=== PATIENT | female | born 1960 | race Caucasian/White ===

== ENCOUNTER 2018-06-21 03:55 | Inpatient (IN) | payer BC ==
[2018-06-21] MEDS ORDERED: Sodium Chloride 0.9% 10 ML Syringe FLUSH PRN (04:13)
[2018-06-21] MEDS ORDERED: Diltiazem 25 MG/5 ML SDV IVPUSH ONE (04:17)
[2018-06-21] MEDS ORDERED: Sodium Chloride 0.9% 1,000 ML IV ONE ×2 (04:43→18:52)
[2018-06-21 05:29] LABS: CHLORIDE,CL 103 mmol/L (98-107); SODIUM,NA 137 mmol/L (136-145)
[2018-06-21 05:30] LABS: ANION GAP 18.8 mmol/L (10-20)
[2018-06-21] MEDS ORDERED: Sodium Chloride 0.9% with KCl 1,000 ML IV SCH (05:45)
[2018-06-21] MEDS ORDERED: cefTRIAXone 2 GM Vial IVPUSH ONE (06:10)
--- NOTE | 2018-06-21 06:25 | EDM.PDOC ---
ED HPI GENERAL MEDICAL PROBLEM - General Chief Complaint: Fever Stated Complaint: fever Time Seen by Provider: 06/21/18 04:10 Source of Information: Reports: Patient, Family History Limitations: Reports: No Limitations - History of Present Illness INITIAL COMMENTS - FREE TEXT/NARRATIVE: PtYas presents to ER with complaints of dysuria, fever, and chills that she has been experiencing since last Thursday-. She states that she has also felt weak/lightheaded. Denies any chest pain or shortness of breath. No cough. No nausea, vomiting, or diarrhea. She states that her urine looks somewhat concentrated. Denies any palpitations. No sensation or racing/irregular heart rate/rhythm. Onset Date: 06/16/18 Location: Reports: Generalized, Other (dysuria) Lower Back Pain Score (Numeric/FACES): 3 - Related Data Allergies Allergy/AdvReac Type Severity Reaction Status Date / Time No Known Allergies Allergy Verified 06/21/18 04:07 Home Meds: Home Meds Allopurinol 1 tab PO DAILY 06/30/15 [History] Colchicine 0.6 mg PO ASDIRECTED #4 capsule 06/30/15 [Rx] Enalapril Maleate 1 tab PO DAILY 06/30/15 [History] LORazepam 1 tab PO ASDIRECTED PRN 06/30/15 [History] Levothyroxine Sodium 1 tab PO DAILY 06/30/15 [History] Meloxicam 1 tab PO DAILY 06/30/15 [History] Past Medical History Cardiovascular History: Reports: Hypertension Other [employer] History: Tubal ligation Other Musculoskeletal History: Finger repair Psychiatric History: Reports: Anxiety, Depression Endocrine/Metabolic History: Reports: Other (See Below) Other Endocrine/Metabolic History: thyroid disease Social & Family History - Tobacco Use Smoking Status *Q: Never Smoker ED ROS GENERAL - Review of Systems Review Of Systems: See Below Constitutional: Reports: Fever, Chills, Fatigue HEENT: Reports: No Symptoms Respiratory: Reports: No Symptoms Cardiovascular: Reports: No Symptoms Endocrine: Reports: No Symptoms GI/Abdominal: Reports: No Symptoms : Reports: Dysuria Musculoskeletal: Reports: No Symptoms Skin: Reports: No Symptoms Neurological: Reports: Weakness (generalized) Psychiatric: Reports: No Symptoms Hematologic/Lymphatic: Reports: No Symptoms Immunologic: Reports: No Symptoms ED EXAM, GENERAL - Physical Exam Exam: See Below Exam Limited By: No Limitations General Appearance: Alert, WD/WN, No Apparent Distress Eye Exam: Bilateral Eye: EOMI, Normal Fundi, Normal Inspection, PERRL Nose: Normal Inspection, Normal Mucosa, No Blood Throat/Mouth: Normal Inspection, Normal Lips, Normal Teeth, Normal Gums, Normal Oropharynx, Normal Voice, No Airway Compromise Head: Atraumatic, Normocephalic Neck: Normal Inspection, Supple, Non-Tender, Full Range of Motion Respiratory/Chest: No Respiratory Distress, Lungs Clear, Normal Breath Sounds, No Accessory Muscle Use, Chest Non-Tender Cardiovascular: Normal Peripheral Pulses, Regular Rate, Rhythm, No Edema, No Gallop, No JVD, No Murmur, No Rub Peripheral Pulses: 4+: Radial (L), Radial (R) GI/Abdominal: Normal Bowel Sounds, Soft, Non-Tender, No Organomegaly, No Distention, No Abnormal Bruit, No Mass (Female) Exam: Deferred Rectal (Female) Exam: Deferred Back Exam: Normal Inspection, Full Range of Motion, NT Extremities: Normal Inspection, Normal Range of Motion, Non-Tender, Normal Capillary Refill, No Pedal Edema Neurological: Alert, Oriented, CN II-XII Intact, Normal Cognition, No Motor/ Sensory Deficits Psychiatric: Normal Affect, Normal Mood Skin Exam: Warm, Dry, Intact, Normal Color, No Rash Lymphatic: No Adenopathy EKG INTERPRETATION Rhythm: Other (a flutter at 150) Comparison: NA - No Prior EKG Course - Vital Signs Last Recorded V/S: Last Vital Signs Temp 37.9 C 06/21/18 05:54 Pulse 115 H 06/21/18 05:54 Resp 20 06/21/18 05:54 BP 134/78 06/21/18 05:54 Pulse Ox 95 06/21/18 04:03 - Orders/Labs/Meds Orders: Active Orders 24 hr Category Date Time Status Patient Status [ADT] Routine ADT 06/21/18 06:13 Active EKG Documentation Completion [RC] STAT Care 06/21/18 04:14 Active EKG Documentation Completion [RC] STAT Care 06/21/18 06:11 Active Chest 1V Frontal [CR] Stat Exams 06/21/18 04:15 Taken CULTURE BLOOD [BC] Stat Lab 06/21/18 04:39 Received CULTURE BLOOD [BC] Stat Lab 06/21/18 04:44 Received Sodium Chloride 0.9% [Saline Flush] Med 06/21/18 04:13 Active 10 ml FLUSH ASDIRECTED PRN Sodium Chloride 0.9% with KCl [Normal Saline with 40 Med 06/21/18 05:45 Active mEq KCl] 1,000 ml IV ASDIRECTED Blood Culture x2 Reflex Set [OM.PC] Stat Oth 06/21/18 04:15 Ordered Peripheral IV Insertion Adult [OM.PC] Routine Oth 06/21/18 04:15 Ordered Medication Orders Potassium Chloride/Sodium Chloride (Normal Saline With 40 Meq Kcl) 1,000 mls @ 200 mls/hr IV ASDIRECTED ALDA Last Admin: 06/21/18 05:55 Dose: 200 mls/hr Sodium Chloride (Saline Flush) 10 ml FLUSH ASDIRECTED PRN PRN Reason: Keep Vein Open Labs: Laboratory Tests 06/21/18 06/21/18 06/21/18 Range/Units 04:39 04:39 04:39 WBC 6.7 (4.0-10.0) x10^3/uL RBC 3.77 L (4.00-5.50) x10^6/uL Hgb 12.5 (12.0-16.0) g/dL Hct 35.6 (33.0-47.0) % MCV 94.4 H (78.0-93.0) fL MCH 33.2 H (26.0-32.0) pg MCHC 35.1 (32.0-36.0) g/dL RDW Coeff of Kaleigh 13.8 (10.0-15.0) % Plt Count 64 L (130-400) x10^3/uL Neut % (Auto) 82.2 H (50.0-80.0) % Lymph % (Auto) 9.6 L (25.0-50.0) % Todd % (Auto) 7.8 (2.0-11.0) % Eos % (Auto) 0.2 (0.0-4.0) % Baso % (Auto) 0.2 (0.2-1.2) % PT 11.7 H (9.6-11.4) SEC INR 1.1 L (2.0-3.5) Sodium 137 (136-145) mmol/L Potassium 2.8 L* (3.5-5.1) mmol/L Chloride 103 (98-107) mmol/L Carbon Dioxide 18 L (21-32) mmol/L Anion Gap 18.8 (10-20) mmol/L BUN 5 L (7-18) mg/dL Creatinine 1.1 H (0.55-1.02) mg/dL Est Cr Clr Drug Dosing TNP Estimated GFR (MDRD) 51 Glucose 158 H (74-106) mg/dL Lactic Acid (0.4-2.0) mmol/L Calcium 8.5 (8.5-10.1) mg/dL Corrected Calcium 9.06 (8.5-10.1) mg/dL Phosphorus 2.5 L (2.6-4.7) mg/dL Magnesium 1.4 L (1.8-2.4) mg/dL Total Bilirubin 2.1 H (0.2-1.0) mg/dL AST 39 H (15-37) U/L ALT 54 (14-59) U/L Alkaline Phosphatase 74 (46-116) U/L Troponin I < 0.017 (<=0.056) ng/mL C-Reactive Protein 8.2 H (<=0.9) mg/dL Total Protein 7.4 (6.4-8.2) g/dL Albumin 3.3 L (3.4-5.0) g/dL Globulin 4.1 Albumin/Globulin Ratio 0.80 TSH, Ultra Sensitive 6.034 H (0.358-3.74) uIU/mL Urine Color (YELLOW) Urine Appearance (CLEAR) Urine pH (5.0-8.0) Ur Specific Rogers Urine Protein (NEGATIVE) mg/dL Urine Glucose (UA) (NEGATIVE) mg/dL Urine Ketones (NEGATIVE) mg/dL Urine Occult Blood (NEGATIVE) Urine Nitrite (NEGATIVE) Urine Bilirubin (NEGATIVE) Urine Urobilinogen (0.2) EU/dL Ur Leukocyte Esterase (NEGATIVE) Urine RBC (NOT SEEN) /HPF Urine WBC (NOT SEEN) /HPF Urine WBC Clumps Ur Squamous Epith Cells (NEGATIVE) /HPF Ur Renal Epithelial Cell (NEGATIVE) /HPF Urine Bacteria (NEGATIVE) /HPF Urine Mucus (NEGATIVE) /LPF 06/21/18 06/21/18 Range/Units 04:39 05:50 WBC (4.0-10.0) x10^3/uL RBC (4.00-5.50) x10^6/uL Hgb (12.0-16.0) g/dL Hct (33.0-47.0) % MCV (78.0-93.0) fL MCH (26.0-32.0) pg MCHC (32.0-36.0) g/dL RDW Coeff of Kaleigh (10.0-15.0) % Plt Count (130-400) x10^3/uL Neut % (Auto) (50.0-80.0) % Lymph % (Auto) (25.0-50.0) % Todd % (Auto) (2.0-11.0) % Eos % (Auto) (0.0-4.0) % Baso % (Auto) (0.2-1.2) % PT (9.6-11.4) SEC INR (2.0-3.5) Sodium (136-145) mmol/L Potassium (3.5-5.1) mmol/L Chloride (98-107) mmol/L Carbon Dioxide (21-32) mmol/L Anion Gap (10-20) mmol/L BUN (7-18) mg/dL Creatinine (0.55-1.02) mg/dL Est Cr Clr Drug Dosing Estimated GFR (MDRD) Glucose (74-106) mg/dL Lactic Acid 2.5 H* (0.4-2.0) mmol/L Calcium (8.5-10.1) mg/dL Corrected Calcium (8.5-10.1) mg/dL Phosphorus (2.6-4.7) mg/dL Magnesium (1.8-2.4) mg/dL Total Bilirubin (0.2-1.0) mg/dL AST (15-37) U/L ALT (14-59) U/L Alkaline Phosphatase (46-116) U/L Troponin I (<=0.056) ng/mL C-Reactive Protein (<=0.9) mg/dL Total Protein (6.4-8.2) g/dL Albumin (3.4-5.0) g/dL Globulin Albumin/Globulin Ratio TSH, Ultra Sensitive (0.358-3.74) uIU/mL Urine Color Dark yellow H (YELLOW) Urine Appearance Turbid H (CLEAR) Urine pH 6.0 (5.0-8.0) Ur Specific Rogers <=1.005 Urine Protein 100 H (NEGATIVE) mg/dL Urine Glucose (UA) Negative (NEGATIVE) mg/dL Urine Ketones Negative (NEGATIVE) mg/dL Urine Occult Blood Moderate H (NEGATIVE) Urine Nitrite Negative (NEGATIVE) Urine Bilirubin Negative (NEGATIVE) Urine Urobilinogen 0.2 (0.2) EU/dL Ur Leukocyte Esterase Large H (NEGATIVE) Urine RBC 5-10 H (NOT SEEN) /HPF Urine WBC Semi-packed (NOT SEEN) /HPF Urine WBC Clumps Few Ur Squamous Epith Cells Moderate H (NEGATIVE) /HPF Ur Renal Epithelial Cell Few H (NEGATIVE) /HPF Urine Bacteria Many H (NEGATIVE) /HPF Urine Mucus Moderate H (NEGATIVE) /LPF Meds: Medications Generic Name Dose Route Start Last Admin Trade Name Freq PRN Reason Stop Dose Admin Potassium Chloride/Sodium Chloride 1,000 mls @ 200 mls/hr 06/21/18 05:45 05:55 Normal Saline With 40 Meq Kcl IV 200 mls/hr ASDIRECTED ALDA Administration Sodium Chloride 10 ml 06/21/18 04:13 Saline Flush FLUSH ASDIRECTED PRN Keep Vein Open Discontinued Medications Generic Name Dose Route Start Last Admin Trade Name Freq PRN Reason Stop Dose Admin Ceftriaxone Sodium 2 gm 06/21/18 06:10 06/21/18 06:19 Rocephin IVPUSH 06/21/18 06:11 2 gm STAT ONE Administration Diltiazem HCl 20 mg 06/21/18 04:17 06/21/18 04:25 Diltiazem IVPUSH 06/21/18 04:18 20 mg ONETIME ONE Administration Sodium Chloride 1,000 mls @ 1,000 mls/hr 06/21/18 04:43 06/21/18 04:25 Normal Saline IV 06/21/18 05:42 1,000 mls/hr .BOLUS ONE Administration - Radiology Interpretation Free Text/Narrative:: CXR negative for acute pathology - Re-Assessments/Exams Free Text/Narrative Re-Assessment/Exam: Pt. was given cardizem 20mg IV. After approx. 1-15min, pt. converted to sinus tach in the 110-120 range with [address] acute ST or T wave changes. Pt. was given 1 liter or NS and then started on NS with 40meq of KCl at 200ml/hr. She was given 2 gm rocephin IV for her UTI. Free Text/Narrative Re-Assessment/Exam: 06/21/18 06:29 Admit-Obs Code level 2 Continue NS with 40KCl at 200ml/hr Rocephin 1gm daily for subsequent doses. Will trend labs, including lactic acid, chemisty, and CBC. Departure - Departure Time of Disposition: 06:35 Disposition: Refer to Observation Clinical Impression: UTI (urinary tract infection), Atrial flutter - Discharge Information - My Orders Last 24 Hours: My Active Orders 06/21/18 04:13 Sodium Chloride 0.9% [Saline Flush] 10 ml FLUSH ASDIRECTED PRN 06/21/18 04:14 EKG Documentation Completion [RC] STAT 06/21/18 04:15 Chest 1V Frontal [CR] Stat Blood Culture x2 Reflex Set [OM.PC] Stat Peripheral IV Insertion Adult [OM.PC] Routine 06/21/18 04:39 CULTURE BLOOD [BC] Stat 06/21/18 04:44 CULTURE BLOOD [BC] Stat 06/21/18 05:45 Sodium Chloride 0.9% with KCl [Normal Saline with 40 mEq KCl] 1,000 ml IV ASDIRECTED 06/21/18 06:11 EKG Documentation Completion [RC] STAT 06/21/18 06:13 Patient Status [ADT] Routine - Assessment/Plan Last 24 Hours: My Active Orders 06/21/18 04:13 Sodium Chloride 0.9% [Saline Flush] 10 ml FLUSH ASDIRECTED PRN 06/21/18 04:14 EKG Documentation Completion [RC] STAT 06/21/18 04:15 Chest 1V Frontal [CR] Stat Blood Culture x2 Reflex Set [OM.PC] Stat Peripheral IV Insertion Adult [OM.PC] Routine 06/21/18 04:39 CULTURE BLOOD [BC] Stat 06/21/18 04:44 CULTURE BLOOD [BC] Stat 06/21/18 05:45 Sodium Chloride 0.9% with KCl [Normal Saline with 40 mEq KCl] 1,000 ml IV ASDIRECTED 06/21/18 06:11 EKG Documentation Completion [RC] STAT 06/21/18 06:13 Patient Status [ADT] Routine
[2018-06-21] MEDS ORDERED: Meloxicam 7.5 MG Tab PO SCH (08:00)
[2018-06-21] MEDS: Allopurinol 300 MG Tab PO SCH (08:12)
[2018-06-21] MEDS: Enalapril 5 MG Tab PO SCH (08:12)
[2018-06-21] MEDS: Levothyroxine 75 MCG Tab PO SCH (08:12)
[2018-06-21] MEDS ORDERED: Ibuprofen 200 MG Tab PO PRN (10:47)
[2018-06-21] MEDS ORDERED: Acetaminophen/HYDROcodone 325-10 MG Tab PO PRN (10:52)
[2018-06-21] MEDS: Lactated Ringers 1,000 ML IV SCH ×2 (11:11→21:40)
[2018-06-21] MEDS ORDERED: Enoxaparin 40 MG/0.4 ML Syringe SUBCUT SCH (16:45)
[2018-06-21] MEDS ORDERED: Magnesium Sulfate/Water 4 GM in Premix Bag 1 BAG IV ONE (17:52)
--- NOTE | 2018-06-21 19:30 | PCM.HP ---
H&P History of Present Illness - General Date of Service: 06/21/18 Admit Problem/Dx: Admission Diagnosis/Problem Admission Diagnosis/Problem Septicemia 2/2 to Acute cystitis with hematuria, gram negative rods Fevers Diarrhea Dehydration Hypomagnesemia Source of Information: Patient, Old Records, RN, RN Notes Reviewed History Limitations: Reports: No Limitations - History of Present Illness Initial Comments - Free Text/Narative: Patient presented to the ED at [facility] early this morning complaining of fevers (Tmax 103.5), chills, and UTI like symptoms. Patient states her symptoms began last week Thursday. She has not experienced any chest pain or SOB. She has some mild generalized abdominal discomfort. She states she has been having loose watery stools since last Thursday as well. She feels fatigued and weak. No focal neurological problems. Patient was admitted to the observation unit this morning with a diagnosis of UTI. Her blood cultures came back positive this afternoon for gram negative rods , therefore, her status was changes to acute as she will require a longer period of IV antibiotics. 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 She is not aware of any possible exposures, but it is certainly possible. Her bowels are usually normal formed stools daily. She has not had any recent diet changes. No recent abx use. She feels nauseated at times , but seems to subside on its own. She has chronic back pain. She is currently taking high doses of NSAIDS for her back pain. Onset of Symptoms: Reports: Gradual Symptom Onset Date: 06/15/18 Location: Reports: Abdomen, Generalized Quality: Reports: Dull Severity: Mild Lower Back Pain Score (Numeric/FACES): 3 - Related Data Allergies/Adverse Reactions: Allergies Allergy/AdvReac Type Severity Reaction Status Date / Time No Known Allergies Allergy Verified 06/21/18 04:07 Home Medications: Home Meds Allopurinol 300 mg PO DAILY 06/30/15 [History] LORazepam 0.5 mg PO BEDTIME 06/30/15 [History] Levothyroxine Sodium 75 mcg PO DAILY 06/30/15 [History] Meloxicam 15 mg PO DAILY 06/30/15 [History] Colchicine 0.6 mg PO Q6H PRN 06/21/18 [History] Enalapril [Vasotec] 10 mg PO DAILY 06/21/18 [History] Past Medical History Cardiovascular History: Reports: Hypertension Other OB/BYN History: Tubal ligation Musculoskeletal History: Reports: Gout Other Musculoskeletal History: Finger repair Psychiatric History: Reports: Anxiety, Depression, Other (See Below) Other Psychiatric History: insomnia Endocrine/Metabolic History: Reports: Hypothyroidism, Other (See Below) Other Endocrine/Metabolic History: thyroid disease Social & Family History - Family History Family Medical History: Noncontributory - Tobacco Use Smoking Status *Q: Never Smoker Second Hand Smoke Exposure: No - Caffeine Use Caffeine Use: Reports: Coffee - Recreational Drug Use Recreational Drug Use: No H&P Review of Systems - Review of Systems: Review Of Systems: See Below General: Reports: Fever, Chills, Weakness, Fatigue. Denies: Diaphoresis, Weight Loss Pulmonary: Denies: Shortness of Breath, Cough Cardiovascular: Denies: Chest Pain, Palpitations Gastrointestinal: Reports: Abdominal Pain, Diarrhea, Nausea. Denies: Black Stool, Bloody Stool, Vomiting Genitourinary: Reports: Dysuria, Frequency, Urgency, Hematuria. Denies: Discharge Musculoskeletal: Reports: Back Pain (chronic) Skin: Reports: No Symptoms Neurological: Reports: No Symptoms Exam - Exam Exam: See Below - Vital Signs Vital Signs: Last Vital Signs Temp 37.2 C 06/21/18 17:25 Pulse 94 06/21/18 17:25 Resp 16 06/21/18 17:25 BP 143/80 H 06/21/18 17:25 Pulse Ox 98 06/21/18 17:25 Weight: 74.616 kg - Exam General: Alert, Oriented, Cooperative Lungs: Clear to Auscultation, Normal Respiratory Effort Cardiovascular: Regular Rate, Regular Rhythm, Normal S1, Normal S2 GI/Abdominal Exam: Normal Bowel Sounds, Soft, Tender (mildly tender throughout) (Female) Exam: Deferred Back Exam: Normal Inspection Skin: Warm, Dry, Intact Neuro Extensive - Mental Status: Alert, Oriented x3 - Patient Data Lab Results Last 24 hrs: Laboratory Results - last 24 hr 06/21/18 06/21/18 06/21/18 Range/Units 04:39 04:39 04:39 WBC 6.7 (4.0-10.0) x10^3/uL RBC 3.77 L (4.00-5.50) x10^6/uL Hgb 12.5 (12.0-16.0) g/dL Hct 35.6 (33.0-47.0) % MCV 94.4 H (78.0-93.0) fL MCH 33.2 H (26.0-32.0) pg MCHC 35.1 (32.0-36.0) g/dL RDW Coeff of [place] 13.8 (10.0-15.0) % Plt Count 64 L (130-400) x10^3/uL Neut % (Auto) 82.2 H (50.0-80.0) % Lymph % (Auto) 9.6 L (25.0-50.0) % [place] % (Auto) 7.8 (2.0-11.0) % Eos % (Auto) 0.2 (0.0-4.0) % Baso % (Auto) 0.2 (0.2-1.2) % PT 11.7 H (9.6-11.4) SEC INR 1.1 L (2.0-3.5) Sodium 137 (136-145) mmol/L Potassium 2.8 L* (3.5-5.1) mmol/L Chloride 103 (98-107) mmol/L Carbon Dioxide 18 L (21-32) mmol/L Anion Gap 18.8 (10-20) mmol/L BUN 5 L (7-18) mg/dL Creatinine 1.1 H (0.55-1.02) mg/dL Est Cr Clr Drug Dosing TNP Estimated GFR (MDRD) 51 Glucose 158 H (74-106) mg/dL Lactic Acid (0.4-2.0) mmol/L Calcium 8.5 (8.5-10.1) mg/dL Corrected Calcium 9.06 (8.5-10.1) mg/dL Phosphorus 2.5 L (2.6-4.7) mg/dL Magnesium 1.4 L (1.8-2.4) mg/dL Total Bilirubin 2.1 H (0.2-1.0) mg/dL AST 39 H (15-37) U/L ALT 54 (14-59) U/L Alkaline Phosphatase 74 (46-116) U/L Troponin I < 0.017 (<=0.056) ng/mL C-Reactive Protein 8.2 H (<=0.9) mg/dL Total Protein 7.4 (6.4-8.2) g/dL Albumin 3.3 L (3.4-5.0) g/dL Globulin 4.1 Albumin/Globulin Ratio 0.80 TSH, Ultra Sensitive 6.034 H (0.358-3.74) uIU/mL Urine Color (YELLOW) Urine Appearance (CLEAR) Urine pH (5.0-8.0) Ur Specific [place] Urine Protein (NEGATIVE) mg/dL Urine Glucose (UA) (NEGATIVE) mg/dL Urine Ketones (NEGATIVE) mg/dL Urine Occult Blood (NEGATIVE) Urine Nitrite (NEGATIVE) Urine Bilirubin (NEGATIVE) Urine Urobilinogen (0.2) EU/dL Ur Leukocyte Esterase (NEGATIVE) Urine RBC (NOT SEEN) /HPF Urine WBC (NOT SEEN) /HPF Urine WBC Clumps Ur Squamous Epith Cells (NEGATIVE) /HPF Ur Renal Epithelial Cell (NEGATIVE) /HPF Urine Bacteria (NEGATIVE) /HPF Urine Mucus (NEGATIVE) /LPF 06/21/18 06/21/18 06/21/18 Range/Units 04:39 05:50 11:01 WBC (4.0-10.0) x10^3/uL RBC (4.00-5.50) x10^6/uL Hgb (12.0-16.0) g/dL Hct (33.0-47.0) % MCV (78.0-93.0) fL MCH (26.0-32.0) pg MCHC (32.0-36.0) g/dL RDW Coeff of [place] (10.0-15.0) % Plt Count (130-400) x10^3/uL Neut % (Auto) (50.0-80.0) % Lymph % (Auto) (25.0-50.0) % [place] % (Auto) (2.0-11.0) % Eos % (Auto) (0.0-4.0) % Baso % (Auto) (0.2-1.2) % PT (9.6-11.4) SEC INR (2.0-3.5) Sodium (136-145) mmol/L Potassium (3.5-5.1) mmol/L Chloride (98-107) mmol/L Carbon Dioxide (21-32) mmol/L Anion Gap (10-20) mmol/L BUN (7-18) mg/dL Creatinine (0.55-1.02) mg/dL Est Cr Clr Drug Dosing Estimated GFR (MDRD) Glucose (74-106) mg/dL Lactic Acid 2.5 H* 1.7 (0.4-2.0) mmol/L Calcium (8.5-10.1) mg/dL Corrected Calcium (8.5-10.1) mg/dL Phosphorus (2.6-4.7) mg/dL Magnesium (1.8-2.4) mg/dL Total Bilirubin (0.2-1.0) mg/dL AST (15-37) U/L ALT (14-59) U/L Alkaline Phosphatase (46-116) U/L Troponin I (<=0.056) ng/mL C-Reactive Protein (<=0.9) mg/dL Total Protein (6.4-8.2) g/dL Albumin (3.4-5.0) g/dL Globulin Albumin/Globulin Ratio TSH, Ultra Sensitive (0.358-3.74) uIU/mL Urine Color Dark yellow H (YELLOW) Urine Appearance Turbid H (CLEAR) Urine pH 6.0 (5.0-8.0) Ur Specific [place] <=1.005 Urine Protein 100 H (NEGATIVE) mg/dL Urine Glucose (UA) Negative (NEGATIVE) mg/dL Urine Ketones Negative (NEGATIVE) mg/dL Urine Occult Blood Moderate H (NEGATIVE) Urine Nitrite Negative (NEGATIVE) Urine Bilirubin Negative (NEGATIVE) Urine Urobilinogen 0.2 (0.2) EU/dL Ur Leukocyte Esterase Large H (NEGATIVE) Urine RBC 5-10 H (NOT SEEN) /HPF Urine WBC Semi-packed (NOT SEEN) /HPF Urine WBC Clumps Few Ur Squamous Epith Cells Moderate H (NEGATIVE) /HPF Ur Renal Epithelial Cell Few H (NEGATIVE) /HPF Urine Bacteria Many H (NEGATIVE) /HPF Urine Mucus Moderate H (NEGATIVE) /LPF 06/21/18 Range/Units 11:01 WBC (4.0-10.0) x10^3/uL RBC (4.00-5.50) x10^6/uL Hgb (12.0-16.0) g/dL Hct (33.0-47.0) % MCV (78.0-93.0) fL MCH (26.0-32.0) pg MCHC (32.0-36.0) g/dL RDW Coeff of [place] (10.0-15.0) % Plt Count (130-400) x10^3/uL Neut % (Auto) (50.0-80.0) % Lymph % (Auto) (25.0-50.0) % [place] % (Auto) (2.0-11.0) % Eos % (Auto) (0.0-4.0) % Baso % (Auto) (0.2-1.2) % PT (9.6-11.4) SEC INR (2.0-3.5) Sodium (136-145) mmol/L Potassium 3.7 (3.5-5.1) mmol/L Chloride (98-107) mmol/L Carbon Dioxide (21-32) mmol/L Anion Gap (10-20) mmol/L BUN (7-18) mg/dL Creatinine (0.55-1.02) mg/dL Est Cr Clr Drug Dosing Estimated GFR (MDRD) Glucose (74-106) mg/dL Lactic Acid (0.4-2.0) mmol/L Calcium (8.5-10.1) mg/dL Corrected Calcium (8.5-10.1) mg/dL Phosphorus (2.6-4.7) mg/dL Magnesium (1.8-2.4) mg/dL Total Bilirubin (0.2-1.0) mg/dL AST (15-37) U/L ALT (14-59) U/L Alkaline Phosphatase (46-116) U/L Troponin I (<=0.056) ng/mL C-Reactive Protein (<=0.9) mg/dL Total Protein (6.4-8.2) g/dL Albumin (3.4-5.0) g/dL Globulin Albumin/Globulin Ratio TSH, Ultra Sensitive (0.358-3.74) uIU/mL Urine Color (YELLOW) Urine Appearance (CLEAR) Urine pH (5.0-8.0) Ur Specific [place] Urine Protein (NEGATIVE) mg/dL Urine Glucose (UA) (NEGATIVE) mg/dL Urine Ketones (NEGATIVE) mg/dL Urine Occult Blood (NEGATIVE) Urine Nitrite (NEGATIVE) Urine Bilirubin (NEGATIVE) Urine Urobilinogen (0.2) EU/dL Ur Leukocyte Esterase (NEGATIVE) Urine RBC (NOT SEEN) /HPF Urine WBC (NOT SEEN) /HPF Urine WBC Clumps Ur Squamous Epith Cells (NEGATIVE) /HPF Ur Renal Epithelial Cell (NEGATIVE) /HPF Urine Bacteria (NEGATIVE) /HPF Urine Mucus (NEGATIVE) /LPF Result Diagrams: 06/21/18 04:39 06/21/18 11:01 Asaf Results Last 24 hrs: Microbiology 06/21/18 04:44 Aerobic Blood Culture - Preliminary Blood - Venous - Lab Draw Gram Negative Rods 06/21/18 04:39 Aerobic Blood Culture - Preliminary Blood - Venous Gram Negative Rods Anaerobic Blood Culture - Preliminary Gram Negative Rods *Q Meaningful Use (ADM) - VTE *Q VTE Criteria *Q: Patient is not at risk for falls at time of this dictation - Problem List (1) Septicemia due to gram-negative organism SNOMED Code(s): 686694449 ICD Code: A41.50 - GRAM-NEGATIVE SEPSIS, UNSPECIFIED Status: Acute Priority: High Current Visit: Yes Onset Date: ~06/21/18 (2) Diarrhea SNOMED Code(s): 62388261 ICD Code: R19.7 - DIARRHEA, UNSPECIFIED Status: Acute Priority: Medium Current Visit: Yes Onset Date: ~06/15/18 Qualifiers: Diarrhea type: unspecified type Qualified Code(s): R19.7 - Diarrhea, unspecified (3) Dehydration SNOMED Code(s): 25194097 ICD Code: E86.0 - DEHYDRATION Status: Acute Priority: Medium Current Visit: Yes Onset Date: ~06/21/18 (4) Thrombocytopenia SNOMED Code(s): 492179430 ICD Code: D69.6 - THROMBOCYTOPENIA, UNSPECIFIED Status: Acute Priority: High Current Visit: Yes Onset Date: ~06/21/18 (5) Acute cystitis with hematuria SNOMED Code(s): 88334813 ICD Code: N30.01 - ACUTE CYSTITIS WITH HEMATURIA Status: Acute Priority: Medium Current Visit: Yes Onset Date: ~06/21/18 Problem List Initiated/Reviewed/Updated: Yes Orders Last 24hrs: Active Orders 24 hr Category Date Time Status Patient Status [ADT] Routine ADT 06/21/18 06:13 Active Patient Status [ADT] Routine ADT 06/21/18 16:23 Active Cardiac Monitoring [RC] 06,10,14,18,22,02 Care 06/21/18 06:34 Active Dietary Supplements [RC] 10,20 Care 06/21/18 09:32 Active Intake and Output [RC] QSHIFT Care 06/21/18 06:34 Active Up ad Vicki [RC] 08,20 Care 06/21/18 06:34 Active Regular Diet [DIET] Diet 06/21/18 Breakfast Active Chest 1V Frontal [CR] Stat Exams 06/21/18 04:15 Taken CULTURE BLOOD [BC] Stat Lab 06/21/18 04:39 Results CULTURE BLOOD [BC] Stat Lab 06/21/18 04:44 Results MISC TEST Routine Lab 06/21/18 18:52 Ordered Acetaminophen/HYDROcodone [[place] 325-10 MG] Med 06/21/18 10:52 Active 1 tab PO Q6H PRN Allopurinol [Zyloprim] Med 06/21/18 08:00 Active 300 mg PO DAILY Enalapril [Vasotec] Med 06/21/18 08:00 Active 5 mg PO DAILY LORazepam [Ativan] Med 06/21/18 20:00 Active 0.5 mg PO BEDTIME Lactated Ringers [Ringers, Lactated] 1,000 ml Med 06/21/18 11:15 Active IV ASDIRECTED Levothyroxine Med 06/21/18 07:15 Active 75 mcg PO ACBREAKFAST Magnesium Sulfate/Water [Magnesium Sulfate 4 GM in Med 06/21/18 17:52 Active Water 100 ML] 4 gm Premix Bag 1 bag IV ONETIME Meloxicam [Mobic] Med 06/21/18 08:00 Active 15 mg PO DAILY Sodium Chloride 0.9% [Normal Saline] 1,000 ml Med 06/21/18 18:52 Active IV ONETIME Sodium Chloride 0.9% [Saline Flush] Med 06/21/18 04:13 Active 10 ml FLUSH ASDIRECTED PRN cefTRIAXone [Rocephin] Med 06/22/18 06:00 Active 1 gm IVPUSH DAILY Blood Culture x2 Reflex Set [OM.PC] Stat Oth 06/21/18 04:15 Ordered Peripheral IV Insertion Adult [OM.PC] Routine Oth 06/21/18 04:15 Ordered Code Status [Resuscitation Status] Routine Resus Stat 06/21/18 06:35 Ordered Medication Orders Hydrocodone Bitart/Acetaminophen ([place] 325-10 Mg) 1 tab PO Q6H PRN PRN Reason: Pain (severe 7-10) Allopurinol (Zyloprim) 300 mg PO DAILY [facility] Last Admin: 06/21/18 08:12 Dose: 300 mg Ceftriaxone Sodium (Rocephin) 1 gm IVPUSH DAILY [facility] Enalapril Maleate (Vasotec) 5 mg PO DAILY [facility] Last Admin: 06/21/18 08:12 Dose: 5 mg Lactated Ringer's (Ringers, Lactated) 1,000 mls @ 125 mls/hr IV ASDIRECTED [facility] Last Admin: 06/21/18 11:11 Dose: 125 mls/hr Magnesium Sulfate 4 gm/ Premix 100 mls @ 25 mls/hr IV ONETIME ONE Stop: 06/21/18 21:51 Last Admin: 06/21/18 18:20 Dose: 25 mls/hr Sodium Chloride (Normal Saline) 1,000 mls @ 999 mls/hr IV ONETIME ONE Stop: 06/21/18 19:52 Levothyroxine Sodium (Levothyroxine) 75 mcg PO ACBREAKFAST [facility] Last Admin: 06/21/18 08:12 Dose: 75 mcg Lorazepam (Ativan) 0.5 mg PO BEDTIME [facility] Meloxicam (Mobic) 15 mg PO DAILY [facility] Last Admin: 06/21/18 08:12 Dose: 15 mg Sodium Chloride (Saline Flush) 10 ml FLUSH ASDIRECTED PRN PRN Reason: Keep Vein Open Assessment/Plan Comment:: 57 yo female patient with a past medical history of HTN, depression, Gout, and Hypothyroidism is admitted to the acute care floor at [facility] for a diagnosis of Septicemia, UTI, dehydration, diarrhea, and thrombocytopenia. Patient was originally admitted earlier this AM and switch to acute status this afternoon due to positive blood cultures. - Septicemia: Continue with Rocephin for now until stool and urine culture results are known; will give one additional liter of NS, then resume LR at 125cc /r; monitor telemetry and vital signs. If patient spikes fevers, will add Merepenem of Zosyn. 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 Monitor closely. - Diarrhea: stool cultures; probiotics, may consider Imodium if severe - Thrombocytopenia: labs in AM; check peripheral smear; Stop NSAIDS; stop lovenox; Baseline platelets 211 from 2014 Patien wishes to be a full code. She agrees to be transferred to a higher level of care should the needs arise. Pharmacy has been consulted due to Septicemia and abx coverage. I anticipate patient to be acute for the next 3-4 days for IV antibiotics. Continue home medications the same. NOTE: This patient was seen and examined by me as an [facility] provider.
[2018-06-21] MEDS: LORazepam 0.5 MG Tab PO SCH (19:42)
[2018-06-21] MEDS: Acetaminophen 325 MG Tab PO PRN (22:05)
[2018-06-22] MEDS: Lactated Ringers 1,000 ML IV SCH ×3 (05:33→22:00)
[2018-06-22] MEDS: cefTRIAXone 1 GM Vial IVPUSH SCH ×2 (05:59→08:24)
[2018-06-22] MEDS: Levothyroxine 75 MCG Tab PO SCH (06:05)
[2018-06-22 07:31] LABS: CHLORIDE,CL 104 mmol/L (98-107); SODIUM,NA 136 mmol/L (136-145)
[2018-06-22 07:32] LABS: ANION GAP 14.1 mmol/L (10-20)
[2018-06-22] MEDS: Allopurinol 300 MG Tab PO SCH (08:24)
[2018-06-22] MEDS: Enalapril 5 MG Tab PO SCH (08:24)
[2018-06-22] MEDS ORDERED: Potassium Chloride 20 MEQ in Premix Bag 1 BAG IV ONE (08:31)
[2018-06-22] MEDS: Acetaminophen 325 MG Tab PO PRN ×2 (12:27→22:06)
--- NOTE | 2018-06-22 19:04 | PCM.PN ---
- General Info Date of Service: 06/22/18 Admission Dx/Problem (Free Text): Admission Diagnosis/Problem Admission Diagnosis/Problem Septicemia 2/2 to Acute cystitis with hematuria, gram negative rods Fevers Diarrhea Dehydration Hypomagnesemia Subjective Update: Patient states this morning that she is feeling somewhat better. She complains of generalized body aches, specifically her lower back and feet. Patient is urinating ok. No issues with BM's. Patient states she is tolerating her diet. She has been ambulating in the hallways. Otherwise, patient states she is doing ok. Functional Status: Reports: Pain Controlled, Tolerating Diet, Ambulating, Urinating Pain Score: 3 - Review of Systems General: Reports: Weakness, Fatigue. Denies: Fever, Chills Pulmonary: Denies: Shortness of Breath, Cough Cardiovascular: Denies: Chest Pain, Palpitations Gastrointestinal: Reports: Diarrhea. Denies: Abdominal Pain, Nausea, Vomiting Genitourinary: Denies: Dysuria, Frequency, Urgency Skin: Reports: No Symptoms Neurological: Reports: No Symptoms - Patient Data Vitals - Most Recent: Last Vital Signs Temp 37.5 C 06/22/18 16:58 Pulse 94 06/22/18 16:58 Resp 16 06/22/18 05:54 BP 140/78 06/22/18 16:58 Pulse Ox 97 06/22/18 16:58 Weight - Most Recent: 74.616 kg I&O - Last 24 Hours: Intake & Output 06/22/18 06/22/18 06/22/18 06:59 14:59 22:59 Intake Total 1657 760 240 Output Total 1300 2000 1000 Balance 357 1242 -760 Lab Results Last 24 Hours: Laboratory Results - last 24 hr 06/22/18 06/22/18 06/22/18 Range/Units 07:05 07:05 07:05 WBC 6.5 (4.0-10.0) x10^3/uL RBC 3.35 L (4.00-5.50) x10^6/uL Hgb 11.3 L (12.0-16.0) g/dL Hct 32.8 L (33.0-47.0) % MCV 97.9 H D (78.0-93.0) fL MCH 33.7 H (26.0-32.0) pg MCHC 34.5 (32.0-36.0) g/dL RDW Coeff of [place] 13.8 (10.0-15.0) % Plt Count 58 L (130-400) x10^3/uL Neut % (Auto) 83.8 H (50.0-80.0) % Lymph % (Auto) 10.7 L (25.0-50.0) % [place] % (Auto) 4.6 (2.0-11.0) % Eos % (Auto) 0.6 (0.0-4.0) % Baso % (Auto) 0.3 (0.2-1.2) % Sodium 136 (136-145) mmol/L Potassium 3.1 L (3.5-5.1) mmol/L Chloride 104 (98-107) mmol/L Carbon Dioxide 21 (21-32) mmol/L Anion Gap 14.1 (10-20) mmol/L BUN 5 L (7-18) mg/dL Creatinine 0.8 (0.55-1.02) mg/dL Est Cr Clr Drug Dosing 67.80 mL/min Estimated GFR (MDRD) > 60 Glucose 156 H (74-106) mg/dL Lactic Acid 0.9 (0.4-2.0) mmol/L Calcium 8.3 L (8.5-10.1) mg/dL Magnesium 2.1 (1.8-2.4) mg/dL Asaf Results Last 24 Hours: Microbiology 06/21/18 05:50 Urine Culture - Preliminary Urine, Clean Catch Gram Negative Rods 06/21/18 04:39 Aerobic Blood Culture - Preliminary Blood - Venous Gram Negative Rods Anaerobic Blood Culture - Preliminary Gram Negative Rods 06/21/18 04:44 Aerobic Blood Culture - Preliminary Blood - Venous - Lab Draw Gram Negative Rods Anaerobic Blood Culture - Preliminary Gram Negative Rods Med Orders - Current: Current Medications Acetaminophen (Tylenol) 650 mg PO Q4H PRN PRN Reason: Pain/Fever Last Admin: 06/22/18 12:27 Dose: 650 mg Hydrocodone Bitart/Acetaminophen ([place] 325-10 Mg) 1 tab PO Q6H PRN PRN Reason: Pain (severe 7-10) Allopurinol (Zyloprim) 300 mg PO DAILY [facility] Last Admin: 06/22/18 08:24 Dose: 300 mg Ceftriaxone Sodium (Rocephin) 1 gm IVPUSH DAILY [facility] Last Admin: 06/22/18 08:24 Dose: Not Given Enalapril Maleate (Vasotec) 5 mg PO DAILY [facility] Last Admin: 06/22/18 08:24 Dose: 5 mg Lactated Ringer's (Ringers, Lactated) 1,000 mls @ 125 mls/hr IV ASDIRECTED [facility] Last Admin: 06/22/18 14:21 Dose: 125 mls/hr Levothyroxine Sodium (Levothyroxine) 75 mcg PO ACBREAKFAST [facility] Last Admin: 06/22/18 06:05 Dose: 75 mcg Lorazepam (Ativan) 0.5 mg PO BEDTIME [facility] Last Admin: 06/21/18 19:42 Dose: 0.5 mg Sodium Chloride (Saline Flush) 10 ml FLUSH ASDIRECTED PRN PRN Reason: Keep Vein Open Discontinued Medications Ceftriaxone Sodium (Rocephin) 2 gm IVPUSH STAT ONE Stop: 06/21/18 06:11 Last Admin: 06/21/18 06:19 Dose: 2 gm Diltiazem HCl (Diltiazem) 20 mg IVPUSH ONETIME ONE Stop: 06/21/18 04:18 Last Admin: 06/21/18 04:25 Dose: 20 mg Enoxaparin Sodium (Lovenox) 40 mg SUBCUT DAILY [facility] Last Admin: 06/21/18 18:15 Dose: Not Given Sodium Chloride (Normal Saline) 1,000 mls @ 1,000 mls/hr IV .BOLUS ONE Stop: 06/21/18 05:42 Last Admin: 06/21/18 04:25 Dose: 1,000 mls/hr Potassium Chloride/Sodium Chloride (Normal Saline With 40 Meq Kcl) 1,000 mls @ 200 mls/hr IV ASDIRECTED [facility] Last Admin: 06/21/18 05:55 Dose: 200 mls/hr Magnesium Sulfate 4 gm/ Premix 100 mls @ 25 mls/hr IV ONETIME ONE Stop: 06/21/18 21:51 Last Admin: 06/21/18 18:20 Dose: 25 mls/hr Sodium Chloride (Normal Saline) 1,000 mls @ 999 mls/hr IV ONETIME ONE Stop: 06/21/18 19:52 Last Admin: 06/21/18 19:37 Dose: 999 mls/hr Potassium Chloride 20 meq/ (Premix) 50 mls @ 50 mls/hr IV ONETIME ONE Stop: 06/22/18 09:30 Last Admin: 06/22/18 09:52 Dose: 50 mls/hr Ibuprofen (Motrin) 600 mg PO Q6H PRN PRN Reason: Pain/Fever Last Admin: 06/21/18 11:02 Dose: 600 mg Meloxicam (Mobic) 15 mg PO DAILY [facility] Last Admin: 06/21/18 08:12 Dose: 15 mg - Exam General: Alert, Oriented, Cooperative, No Acute Distress Lungs: Clear to Auscultation, Normal Respiratory Effort Cardiovascular: Regular Rate, Regular Rhythm, No Murmurs GI/Abdominal Exam: Soft, Non-Tender, Abnormal Bowel Sounds (Hypoactive) Extremities: Normal Inspection Skin: Warm, Dry, Intact Neurological: No New Focal Deficit - Problem List & Annotations (1) Septicemia due to gram-negative organism SNOMED Code(s): 550549343 Code(s): A41.50 - GRAM-NEGATIVE SEPSIS, UNSPECIFIED Status: Acute Priority: High Current Visit: Yes Onset Date: ~06/21/18 (2) Diarrhea SNOMED Code(s): 12062458 Code(s): R19.7 - DIARRHEA, UNSPECIFIED Status: Acute Priority: Medium Current Visit: Yes Onset Date: ~06/15/18 Qualifiers: Diarrhea type: unspecified type Qualified Code(s): R19.7 - Diarrhea, unspecified (3) Dehydration SNOMED Code(s): 79946977 Code(s): E86.0 - DEHYDRATION Status: Acute Priority: Medium Current Visit: Yes Onset Date: ~06/21/18 (4) Thrombocytopenia SNOMED Code(s): 577554720 Code(s): D69.6 - THROMBOCYTOPENIA, UNSPECIFIED Status: Acute Priority: High Current Visit: Yes Onset Date: ~06/21/18 (5) Acute cystitis with hematuria SNOMED Code(s): 18279927 Code(s): N30.01 - ACUTE CYSTITIS WITH HEMATURIA Status: Acute Priority: Medium Current Visit: Yes Onset Date: ~06/21/18 - Problem List Review Problem List Initiated/Reviewed/Updated: Yes - My Orders Last 24 Hours: My Active Orders 06/21/18 18:52 MISC TEST Routine 06/21/18 19:23 Acetaminophen [Tylenol] 650 mg PO Q4H PRN 06/22/18 01:19 Isolation [COMM] Routine 06/22/18 07:05 BLOOD SMEARS TO PATHOLOGIST [REF] Routine 06/23/18 05:11 BASIC METABOLIC PANEL,BMP [CHEM] Routine CBC WITH AUTO DIFF [HEME] Routine - Assessment Assessment:: Septicemia 2/2 gram negative organism UTI Weakness Dehydration Fevers - Plan Plan:: Hospital day #2 for a 57 yo female patient with a past medical history of HTN, depression, Gout, and Hypothyroidism is admitted to the acute care floor at [facility] for a diagnosis of Septicemia, UTI, dehydration, diarrhea, and thrombocytopenia. Patient was originally admitted yesterday and switch to acute status this afternoon due to positive blood cultures. - Septicemia: Continue with Rocephin for now until stool and urine culture results are known; continue LR at 125cc/r; monitor telemetry and vital signs. If patient spikes fevers, will add Merepenem of Zosyn. 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 BUN/creat today is 5/1.1 - Diarrhea: stool cultures; probiotics, may consider Imodium if severe - Thrombocytopenia: labs in AM; check peripheral smear; Stop NSAIDS; stop lovenox; Baseline platelets 211 from 2015 Patien wishes to be a full code. She agrees to be transferred to a higher level of care should the needs arise. Pharmacy has been consulted due to Septicemia and abx coverage. I anticipate patient to be acute for the next 3-4 days for IV antibiotics. Continue home medications the same. Continue acute cares for now. NOTE: This patient was seen and examined by me as an [facility] provider.
[2018-06-22] MEDS: LORazepam 0.5 MG Tab PO SCH (20:57)
[2018-06-22] MEDS: Cyclobenzaprine 10 MG Tab PO PRN (20:57)
[2018-06-23] MEDS: Levothyroxine 75 MCG Tab PO SCH ×2 (04:56→06:59)
[2018-06-23] MEDS: Lactated Ringers 1,000 ML IV SCH (04:56)
[2018-06-23 07:04] LABS: ANION GAP 12.8 mmol/L (10-20); CHLORIDE,CL 102 mmol/L (98-107); SODIUM,NA 138 mmol/L (136-145)
[2018-06-23] MEDS: Ciprofloxacin 500 MG Tab PO SCH ×2 (08:27→20:33)
[2018-06-23] MEDS: cefTRIAXone 1 GM Vial IVPUSH SCH (08:27)
[2018-06-23] MEDS: metroNIDAZOLE 500 MG Tab PO SCH ×2 (08:28→16:36)
[2018-06-23] MEDS: Enalapril 5 MG Tab PO SCH (08:28)
[2018-06-23] MEDS: Cyclobenzaprine 10 MG Tab PO PRN ×2 (08:28→20:33)
[2018-06-23] MEDS: Allopurinol 300 MG Tab PO SCH (08:28)
[2018-06-23] MEDS: Acetaminophen 325 MG Tab PO PRN (16:36)
[2018-06-23] MEDS: LORazepam 0.5 MG Tab PO SCH (20:33)
[2018-06-24] MEDS: metroNIDAZOLE 500 MG Tab PO SCH ×2 (00:42→07:33)
[2018-06-24] MEDS: Levothyroxine 75 MCG Tab PO SCH (06:17)
[2018-06-24 06:20] VITALS: BP 145/85
--- NOTE | 2018-06-24 07:12 | PCM.PN ---
- General Info Date of Service: 06/23/18 Admission Dx/Problem (Free Text): Admission Diagnosis/Problem Admission Diagnosis/Problem Septicemia 2/2 to Acute cystitis with hematuria, gram negative rods Fevers Diarrhea Dehydration Hypomagnesemia Subjective Update: Patient offers no complaints this morning. She is anxious to go home. Patient was started on Cipro and Flagyl yesterday. She states she is tolerated these abx ok. She denies any abdominal pain. Continues to have loose stools, but not watery. No foul odor. She states her muscle pain is much better on the Flexeril. No issues with urination. She is eating ok without problems. Functional Status: Reports: Pain Controlled, Tolerating Diet, Ambulating, Urinating Pain Score: 0 - Review of Systems General: Reports: Fever. Denies: Weakness, Chills Pulmonary: Denies: Shortness of Breath, Cough Cardiovascular: Denies: Chest Pain, Palpitations Gastrointestinal: Denies: Abdominal Pain, Nausea, Vomiting Skin: Reports: No Symptoms Neurological: Reports: No Symptoms - Patient Data Vitals - Most Recent: Last Vital Signs Temp 37.7 C 06/24/18 06:00 Pulse 96 06/24/18 06:00 Resp 16 06/24/18 06:00 BP 145/85 H 06/24/18 06:00 Pulse Ox 96 06/24/18 06:00 Weight - Most Recent: 74.616 kg I&O - Last 24 Hours: Intake & Output 06/23/18 06/24/18 06/24/18 22:59 06:59 14:59 Intake Total 800 Output Total 2600 2600 Balance -2600 -1800 Lab Results Last 24 Hours: Laboratory Results - last 24 hr 06/22/18 06/22/18 Range/Units 01:10 07:05 WBC 6.7 (3.9-11.3) x10-3 ul RBC 3.42 L (4.10-5.30) x10-6 ul Hgb 11.2 L (12.0-16.0) gm/dL Hct 32.6 L (37.0-47.0) % MCV 95 (83-99) fL MCH 32.7 H (28.0-32.0) pg MCHC 34.3 (32.0-36.0) g/dL RDW 14.1 (10.9-15.7) Plt Count 71 L (150-400) x10-3 ul Neutrophils % (Manual) 74 % Band Neuts % (Manual) 10 % Lymphocytes % (Manual) 12 % Monocytes % (Manual) 2 % Eosinophils % (Manual) 1 % Basophils % (Manual) 1 % Neutrophils # (Manual) 4.96 (1.80-7.00) x10-3 ul Band Neutrophils # Man 0.67 (0.00-0.70) x10-3 ul Lymphocytes # (Manual) 0.80 L (1.00-4.80) x10-3 ul Monocytes # (Manual) 0.13 (0.00-0.80) x10-3 ul Eosinophils # (Manual) 0.07 (0.00-0.45) x10-3 ul Basophils # (Manual) 0.07 (0.00-0.20) x10-3 ul RBC/WBC/PLT Morphology Abnormal Vacuolated Neuts Seen Platelet Estimate Mod dec Smear Path Review Path rpt Absolute Retic 0.0589 (0.0200-0.1000) Percent Retic 1.7 (0.3-2.2) % Miscellaneous Test Asaf Results Last 24 Hours: Microbiology 06/21/18 04:44 Aerobic Blood Culture - Final Blood - Venous - Lab Draw Escherichia Coli Anaerobic Blood Culture - Final Escherichia Coli 06/21/18 04:39 Aerobic Blood Culture - Final Blood - Venous Escherichia Coli Anaerobic Blood Culture - Final Escherichia Coli 06/21/18 05:50 Urine Culture - Final Urine, Clean Catch Escherichia Coli Med Orders - Current: Current Medications Acetaminophen (Tylenol) 650 mg PO Q4H PRN PRN Reason: Pain/Fever Last Admin: 06/23/18 16:36 Dose: 650 mg Hydrocodone Bitart/Acetaminophen ([place] 325-10 Mg) 1 tab PO Q6H PRN PRN Reason: Pain (severe 7-10) Allopurinol (Zyloprim) 300 mg PO DAILY [facility] Last Admin: 06/23/18 08:28 Dose: 300 mg Ciprofloxacin (Ciprofloxacin Hcl) 500 mg PO BID [facility] Last Admin: 06/23/18 20:33 Dose: 500 mg Cyclobenzaprine HCl (Flexeril) 10 mg PO Q8H PRN PRN Reason: muscle spasms Last Admin: 06/23/18 20:33 Dose: 10 mg Enalapril Maleate (Vasotec) 5 mg PO DAILY [facility] Last Admin: 06/23/18 08:28 Dose: 5 mg Levothyroxine Sodium (Levothyroxine) 75 mcg PO ACBREAKFAST [facility] Last Admin: 06/24/18 06:17 Dose: 75 mcg Lorazepam (Ativan) 0.5 mg PO BEDTIME [facility] Last Admin: 06/23/18 20:33 Dose: 0.5 mg Metronidazole (Flagyl) 500 mg PO Q8H [facility] Last Admin: 06/24/18 00:42 Dose: 500 mg Sodium Chloride (Saline Flush) 10 ml FLUSH ASDIRECTED PRN PRN Reason: Keep Vein Open Discontinued Medications Ceftriaxone Sodium (Rocephin) 2 gm IVPUSH STAT ONE Stop: 06/21/18 06:11 Last Admin: 06/21/18 06:19 Dose: 2 gm Ceftriaxone Sodium (Rocephin) 1 gm IVPUSH DAILY [facility] Last Admin: 06/23/18 08:27 Dose: Not Given Diltiazem HCl (Diltiazem) 20 mg IVPUSH ONETIME ONE Stop: 06/21/18 04:18 Last Admin: 06/21/18 04:25 Dose: 20 mg Enoxaparin Sodium (Lovenox) 40 mg SUBCUT DAILY [facility] Last Admin: 06/21/18 18:15 Dose: Not Given Sodium Chloride (Normal Saline) 1,000 mls @ 1,000 mls/hr IV .BOLUS ONE Stop: 06/21/18 05:42 Last Admin: 06/21/18 04:25 Dose: 1,000 mls/hr Potassium Chloride/Sodium Chloride (Normal Saline With 40 Meq Kcl) 1,000 mls @ 200 mls/hr IV ASDIRECTED [facility] Last Admin: 06/21/18 05:55 Dose: 200 mls/hr Lactated Ringer's (Ringers, Lactated) 1,000 mls @ 125 mls/hr IV ASDIRECTED [facility] Last Admin: 06/23/18 04:56 Dose: 125 mls/hr Magnesium Sulfate 4 gm/ Premix 100 mls @ 25 mls/hr IV ONETIME ONE Stop: 06/21/18 21:51 Last Admin: 06/21/18 18:20 Dose: 25 mls/hr Sodium Chloride (Normal Saline) 1,000 mls @ 999 mls/hr IV ONETIME ONE Stop: 06/21/18 19:52 Last Admin: 06/21/18 19:37 Dose: 999 mls/hr Potassium Chloride 20 meq/ (Premix) 50 mls @ 50 mls/hr IV ONETIME ONE Stop: 06/22/18 09:30 Last Admin: 06/22/18 09:52 Dose: 50 mls/hr Ibuprofen (Motrin) 600 mg PO Q6H PRN PRN Reason: Pain/Fever Last Admin: 06/21/18 11:02 Dose: 600 mg Meloxicam (Mobic) 15 mg PO DAILY [facility] Last Admin: 06/21/18 08:12 Dose: 15 mg - Exam General: Alert, Oriented, Cooperative, No Acute Distress Lungs: Clear to Auscultation, Normal Respiratory Effort Cardiovascular: Regular Rate, Regular Rhythm, No Murmurs GI/Abdominal Exam: Normal Bowel Sounds, Soft, Non-Tender Peripheral Pulses: 2+: Radial (L), Radial (R) Skin: Warm, Dry, Intact Neurological: No New Focal Deficit - Problem List & Annotations (1) Septicemia due to gram-negative organism SNOMED Code(s): 408843079 Code(s): A41.50 - GRAM-NEGATIVE SEPSIS, UNSPECIFIED Status: Acute Priority: High Current Visit: Yes Onset Date: ~06/21/18 (2) Diarrhea SNOMED Code(s): 41076899 Code(s): R19.7 - DIARRHEA, UNSPECIFIED Status: Acute Priority: Medium Current Visit: Yes Onset Date: ~06/15/18 Qualifiers: Diarrhea type: unspecified type Qualified Code(s): R19.7 - Diarrhea, unspecified (3) Dehydration SNOMED Code(s): 82359690 Code(s): E86.0 - DEHYDRATION Status: Acute Priority: Medium Current Visit: Yes Onset Date: ~06/21/18 (4) Thrombocytopenia SNOMED Code(s): 621062672 Code(s): D69.6 - THROMBOCYTOPENIA, UNSPECIFIED Status: Acute Priority: High Current Visit: Yes Onset Date: ~06/21/18 (5) Acute cystitis with hematuria SNOMED Code(s): 17476667 Code(s): N30.01 - ACUTE CYSTITIS WITH HEMATURIA Status: Acute Priority: Medium Current Visit: Yes Onset Date: ~06/21/18 (6) Clostridium difficile colitis SNOMED Code(s): 724896670 Code(s): A04.72 - ENTEROCOLITIS D/T CLOSTRIDIUM DIFFICILE, NOT SPCF RECUR Status: Acute Priority: Medium Current Visit: Yes Onset Date: ~ - Problem List Review Problem List Initiated/Reviewed/Updated: Yes - My Orders Last 24 Hours: My Active Orders 06/23/18 07:42 Chest 2V [CR] Routine 06/23/18 08:30 Ciprofloxacin [Ciprofloxacin HCl] 500 mg PO BID metroNIDAZOLE [Flagyl] 500 mg PO Q8H 06/23/18 17:46 Fecal Occult Bld Scn Imm [RC] ASDIRECTED 06/24/18 06:53 BASIC METABOLIC PANEL,BMP [CHEM] Routine CBC WITH AUTO DIFF [HEME] Routine - Assessment Assessment:: Septicemia 2/2 gram negative organism C-Diff infection UTI Weakness Dehydration Fevers - Plan Plan:: Hospital day #3 for a 57 yo female patient with a past medical history of HTN, depression, Gout, and Hypothyroidism is admitted to the acute care floor at [facility] for a diagnosis of Septicemia, UTI, dehydration, diarrhea, and thrombocytopenia. Patient was originally admitted Thursday and switch to acute status this afternoon due to positive blood cultures. - Septicemia: 2/2 C Diff infection from stool cultures yesterday, stop LR at 125cc/r as patient is taking PO well; stop telemetry and vital signs. Start PO Cipro and Flagyl for positive C diff in stool; Tylenol for fevers; - C Diff: start Cipro and Flagyl; Probiotics - UTI: improving - Dehydration: resolved - Diarrhea: C diff positive; probiotics, may consider Imodium if severe - Thrombocytopenia: Peripheral smear was ok Patien wishes to be a full code. She agrees to be transferred to a higher level of care should the needs arise. Pharmacy has been consulted due to Septicemia and abx coverage. I anticipate patient to be acute for the next 3-4 days for IV antibiotics. Continue home medications the same. Continue acute cares for now. NOTE: This patient was seen and examined by me as an [facility] provider.
[2018-06-24 07:18] LABS: CHLORIDE,CL 101 mmol/L (98-107); SODIUM,NA 136 mmol/L (136-145)
[2018-06-24 07:26] LABS: ANION GAP 11.8 mmol/L (10-20)
[2018-06-24] MEDS: Enalapril 5 MG Tab PO SCH (07:33)
[2018-06-24] MEDS: Ciprofloxacin 500 MG Tab PO SCH (07:33)
[2018-06-24] MEDS: Allopurinol 300 MG Tab PO SCH (07:33)
--- NOTE | 2018-06-24 08:24 | PCM.DCSUM1 ---
Discharge Summary - Hospital Course HPI Initial Comments: Patient presented to the ED at [facility] last Thursday complaining of fevers (Tmax 103.5), chills, and UTI like symptoms. Patient states her symptoms began last week Thursday. She has not experienced any chest pain or SOB. She has some mild generalized abdominal discomfort. She states she has been having loose watery stools since last Thursday as well. She feels fatigued and weak. No focal neurological problems. Patient was admitted to the observation unit this morning with a diagnosis of UTI. Her blood cultures came back positive this afternoon for gram negative rods , therefore, her status was changes to acute as she will require a longer period of IV antibiotics. 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 She is not aware of any possible exposures, but it is certainly possible. Her bowels are usually normal formed stools daily. She has not had any recent diet changes. No recent abx use. She feels nauseated at times , but seems to subside on its own. She has chronic back pain. She is currently taking high doses of NSAIDS for her back pain. Diagnosis: Stroke: No Modified [place] Scale: No Symptoms at All Modified [place] Scale Score: 0 - Discharge Data Discharge Date: 06/24/18 Discharge Disposition: Home, Self-Care 01 Condition: Good - Discharge Diagnosis/Problem(s) (1) Septicemia due to gram-negative organism SNOMED Code(s): 840507468 ICD Code: A41.50 - GRAM-NEGATIVE SEPSIS, UNSPECIFIED Status: Acute Priority: High Current Visit: Yes Onset Date: ~06/21/18 (2) Diarrhea SNOMED Code(s): 76737222 ICD Code: R19.7 - DIARRHEA, UNSPECIFIED Status: Resolved Priority: Medium Current Visit: Yes Onset Date: ~06/15/18 Qualifiers: Diarrhea type: unspecified type Qualified Code(s): R19.7 - Diarrhea, unspecified (3) Dehydration SNOMED Code(s): 42254590 ICD Code: E86.0 - DEHYDRATION Status: Resolved Priority: Medium Current Visit: Yes Onset Date: ~06/21/18 (4) Thrombocytopenia SNOMED Code(s): 448209770 ICD Code: D69.6 - THROMBOCYTOPENIA, UNSPECIFIED Status: Acute Priority: High Current Visit: Yes Onset Date: ~06/21/18 (5) Acute cystitis with hematuria SNOMED Code(s): 76358546 ICD Code: N30.01 - ACUTE CYSTITIS WITH HEMATURIA Status: Acute Priority: Medium Current Visit: Yes Onset Date: ~06/21/18 (6) Clostridium difficile colitis SNOMED Code(s): 339939764 ICD Code: A04.72 - ENTEROCOLITIS D/T CLOSTRIDIUM DIFFICILE, NOT SPCF RECUR Status: Acute Priority: Medium Current Visit: Yes Onset Date: ~ - Patient Summary/Data Labs Pending at D/C: None Hospital Course: Patient remained hemodynamically stable. She did have fevers, especially in the evening. She has remained fever free that past 24hours. Diarrhea resolved. Patient was started on Cipro and Flagyl yesterday. She is tolerating abx therapy well. Thrombocytopenia improving. No issues with urination. Able to ambulate in halls without assistance. - Patient Instructions Diet: Regular Diet as Tolerated Activity: As Tolerated, Rest and Relax Today Driving: May Drive Today Showering/Bathing: May Shower Notify Provider of: Fever, Increased Pain, Nausea and/or Vomiting - Discharge Plan *PRESCRIPTION DRUG MONITORING PROGRAM REVIEWED*: Not Applicable *COPY OF PRESCRIPTION DRUG MONITORING REPORT IN PATIENT TALA: Not Applicable Home Medications: Home Meds Allopurinol 300 mg PO DAILY 06/30/15 [History] LORazepam 0.5 mg PO BEDTIME 06/30/15 [History] Levothyroxine Sodium 75 mcg PO DAILY 06/30/15 [History] Meloxicam 15 mg PO DAILY 06/30/15 [History] Colchicine 0.6 mg PO Q6H PRN 06/21/18 [History] Enalapril [Vasotec] 10 mg PO DAILY 06/21/18 [History] Referrals: Fatmata Garza NP [Ordering Only Provider] - 07/02/18 10:40 am - Discharge Summary/Plan Comment DC Time >30 min.: Yes Discharge Summary/Plan Comment: Patient will be discharge home today. Will continue on Cipro and Flagyl for 9 more days for full 10 day coarse to ensure complete irradication given septicemia. Recommend taking probiotics. Eat a bland diet for now to let bowels rest. Wash hands frequently. Will have patient follow up with PCP in one week for recheck. Discussed with patient if symptoms worsen, she is to return. No change with any home medications, will keep the same. - General Info Date of Service: 06/24/18 Admission Dx/Problem (Free Text: Admission Diagnosis/Problem Admission Diagnosis/Problem Septicemia 2/2 to Acute cystitis with hematuria, gram negative rods Fevers Diarrhea Dehydration Hypomagnesemia Subjective Update: Patient offers no complaints this morning. She is anxious to go home. Patient was started on Cipro and Flagyl yesterday. She states she is tolerated these abx ok. She denies any abdominal pain. Continues to have loose stools, but not watery. No foul odor. She states her muscle pain is much better on the Flexeril. No issues with urination. She is eating ok without problems. Functional Status: Reports: Pain Controlled, Tolerating Diet, Ambulating, Urinating Numeric/FACES Score: 0 - Review of Systems General: Denies: Fever, Chills Pulmonary: Denies: Shortness of Breath, Cough Cardiovascular: Denies: Chest Pain, Palpitations Gastrointestinal: Denies: Abdominal Pain, Nausea, Vomiting Skin: Reports: No Symptoms Neurological: Reports: No Symptoms - Patient Data Vitals - Most Recent: Last Vital Signs Temp 37.7 C 06/24/18 06:00 Pulse 96 06/24/18 06:00 Resp 16 06/24/18 06:00 BP 145/85 H 06/24/18 06:00 Pulse Ox 96 06/24/18 06:00 Weight - Most Recent: 74.616 kg I&O - Last 24 hours: Intake & Output 06/23/18 06/24/18 06/24/18 22:59 06:59 14:59 Intake Total 800 Output Total 2600 2600 600 Balance -2600 -1800 -600 Lab Results - Last 24 hrs: Laboratory Results - last 24 hr 06/22/18 06/22/18 06/24/18 Range/Units 01:10 07:05 06:53 WBC 6.7 4.9 (3.9-11.3) x10-3 ul RBC 3.42 L 3.23 L (4.10-5.30) x10-6 ul Hgb 11.2 L 10.8 L (12.0-16.0) gm/dL Hct 32.6 L 30.8 L (37.0-47.0) % MCV 95 95.4 H (83-99) fL MCH 32.7 H 33.4 H (28.0-32.0) pg MCHC 34.3 35.1 (32.0-36.0) g/dL RDW 14.1 (10.9-15.7) RDW Coeff of [place] 13.2 (10.0-15.0) % Plt Count 71 L 94 L (150-400) x10-3 ul Neut % (Auto) 65.9 (50.0-80.0) % Lymph % (Auto) 18.7 L (25.0-50.0) % Logan % (Auto) 13.2 H (2.0-11.0) % Eos % (Auto) 1.6 (0.0-4.0) % Baso % (Auto) 0.6 (0.2-1.2) % Neutrophils % (Manual) 74 % Band Neuts % (Manual) 10 % Lymphocytes % (Manual) 12 % Monocytes % (Manual) 2 % Eosinophils % (Manual) 1 % Basophils % (Manual) 1 % Neutrophils # (Manual) 4.96 (1.80-7.00) x10-3 ul Band Neutrophils # Man 0.67 (0.00-0.70) x10-3 ul Lymphocytes # (Manual) 0.80 L (1.00-4.80) x10-3 ul Monocytes # (Manual) 0.13 (0.00-0.80) x10-3 ul Eosinophils # (Manual) 0.07 (0.00-0.45) x10-3 ul Basophils # (Manual) 0.07 (0.00-0.20) x10-3 ul RBC/WBC/PLT Morphology Abnormal Vacuolated Neuts Seen Platelet Estimate Mod dec Smear Path Review Path rpt Absolute Retic 0.0589 (0.0200-0.1000) Percent Retic 1.7 (0.3-2.2) % Sodium (136-145) mmol/L Potassium (3.5-5.1) mmol/L Chloride (98-107) mmol/L Carbon Dioxide (21-32) mmol/L Anion Gap (10-20) mmol/L BUN (7-18) mg/dL Creatinine (0.55-1.02) mg/dL Est Cr Clr Drug Dosing mL/min Estimated GFR (MDRD) Glucose (74-106) mg/dL Calcium (8.5-10.1) mg/dL Miscellaneous Test 06/24/18 Range/Units 06:53 WBC (3.9-11.3) x10-3 ul RBC (4.10-5.30) x10-6 ul Hgb (12.0-16.0) gm/dL Hct (37.0-47.0) % MCV (83-99) fL MCH (28.0-32.0) pg MCHC (32.0-36.0) g/dL RDW (10.9-15.7) RDW Coeff of [place] (10.0-15.0) % Plt Count (150-400) x10-3 ul Neut % (Auto) (50.0-80.0) % Lymph % (Auto) (25.0-50.0) % Logan % (Auto) (2.0-11.0) % Eos % (Auto) (0.0-4.0) % Baso % (Auto) (0.2-1.2) % Neutrophils % (Manual) % Band Neuts % (Manual) % Lymphocytes % (Manual) % Monocytes % (Manual) % Eosinophils % (Manual) % Basophils % (Manual) % Neutrophils # (Manual) (1.80-7.00) x10-3 ul Band Neutrophils # Man (0.00-0.70) x10-3 ul Lymphocytes # (Manual) (1.00-4.80) x10-3 ul Monocytes # (Manual) (0.00-0.80) x10-3 ul Eosinophils # (Manual) (0.00-0.45) x10-3 ul Basophils # (Manual) (0.00-0.20) x10-3 ul RBC/WBC/PLT Morphology Vacuolated Neuts Platelet Estimate Smear Path Review Absolute Retic (0.0200-0.1000) Percent Retic (0.3-2.2) % Sodium 136 (136-145) mmol/L Potassium 3.8 (3.5-5.1) mmol/L Chloride 101 (98-107) mmol/L Carbon Dioxide 27 (21-32) mmol/L Anion Gap 11.8 (10-20) mmol/L BUN 10 (7-18) mg/dL Creatinine 0.8 (0.55-1.02) mg/dL Est Cr Clr Drug Dosing 67.80 mL/min Estimated GFR (MDRD) > 60 Glucose 120 H (74-106) mg/dL Calcium 8.9 (8.5-10.1) mg/dL Miscellaneous Test BULL Results - Last 24 hrs: Microbiology 06/21/18 04:44 Aerobic Blood Culture - Final Blood - Venous - Lab Draw Escherichia Coli Anaerobic Blood Culture - Final Escherichia Coli 06/21/18 04:39 Aerobic Blood Culture - Final Blood - Venous Escherichia Coli Anaerobic Blood Culture - Final Escherichia Coli 06/21/18 05:50 Urine Culture - Final Urine, Clean Catch Escherichia Coli Med Orders - Current: Current Medications Acetaminophen (Tylenol) 650 mg PO Q4H PRN PRN Reason: Pain/Fever Last Admin: 06/23/18 16:36 Dose: 650 mg Hydrocodone Bitart/Acetaminophen ([place] 325-10 Mg) 1 tab PO Q6H PRN PRN Reason: Pain (severe 7-10) Allopurinol (Zyloprim) 300 mg PO DAILY [facility] Last Admin: 06/24/18 07:33 Dose: 300 mg Ciprofloxacin (Ciprofloxacin Hcl) 500 mg PO BID [facility] Last Admin: 06/24/18 07:33 Dose: 500 mg Cyclobenzaprine HCl (Flexeril) 10 mg PO Q8H PRN PRN Reason: muscle spasms Last Admin: 06/23/18 20:33 Dose: 10 mg Enalapril Maleate (Vasotec) 5 mg PO DAILY [facility] Last Admin: 06/24/18 07:33 Dose: 5 mg Levothyroxine Sodium (Levothyroxine) 75 mcg PO ACBREAKFAST [facility] Last Admin: 06/24/18 06:17 Dose: 75 mcg Lorazepam (Ativan) 0.5 mg PO BEDTIME [facility] Last Admin: 06/23/18 20:33 Dose: 0.5 mg Metronidazole (Flagyl) 500 mg PO Q8H [facility] Last Admin: 06/24/18 07:33 Dose: 500 mg Sodium Chloride (Saline Flush) 10 ml FLUSH ASDIRECTED PRN PRN Reason: Keep Vein Open Discontinued Medications Ceftriaxone Sodium (Rocephin) 2 gm IVPUSH STAT ONE Stop: 06/21/18 06:11 Last Admin: 06/21/18 06:19 Dose: 2 gm Ceftriaxone Sodium (Rocephin) 1 gm IVPUSH DAILY [facility] Last Admin: 06/23/18 08:27 Dose: Not Given Diltiazem HCl (Diltiazem) 20 mg IVPUSH ONETIME ONE Stop: 06/21/18 04:18 Last Admin: 06/21/18 04:25 Dose: 20 mg Enoxaparin Sodium (Lovenox) 40 mg SUBCUT DAILY [facility] Last Admin: 06/21/18 18:15 Dose: Not Given Sodium Chloride (Normal Saline) 1,000 mls @ 1,000 mls/hr IV .BOLUS ONE Stop: 06/21/18 05:42 Last Admin: 06/21/18 04:25 Dose: 1,000 mls/hr Potassium Chloride/Sodium Chloride (Normal Saline With 40 Meq Kcl) 1,000 mls @ 200 mls/hr IV ASDIRECTED [facility] Last Admin: 06/21/18 05:55 Dose: 200 mls/hr Lactated Ringer's (Ringers, Lactated) 1,000 mls @ 125 mls/hr IV ASDIRECTED [facility] Last Admin: 06/23/18 04:56 Dose: 125 mls/hr Magnesium Sulfate 4 gm/ Premix 100 mls @ 25 mls/hr IV ONETIME ONE Stop: 06/21/18 21:51 Last Admin: 06/21/18 18:20 Dose: 25 mls/hr Sodium Chloride (Normal Saline) 1,000 mls @ 999 mls/hr IV ONETIME ONE Stop: 06/21/18 19:52 Last Admin: 06/21/18 19:37 Dose: 999 mls/hr Potassium Chloride 20 meq/ (Premix) 50 mls @ 50 mls/hr IV ONETIME ONE Stop: 06/22/18 09:30 Last Admin: 06/22/18 09:52 Dose: 50 mls/hr Ibuprofen (Motrin) 600 mg PO Q6H PRN PRN Reason: Pain/Fever Last Admin: 06/21/18 11:02 Dose: 600 mg Meloxicam (Mobic) 15 mg PO DAILY [facility] Last Admin: 06/21/18 08:12 Dose: 15 mg - Exam General: Reports: Alert, Oriented, Cooperative, No Acute Distress Lungs: Reports: Clear to Auscultation, Normal Respiratory Effort Cardiovascular: Reports: Regular Rate, Regular Rhythm GI/Abdominal Exam: Normal Bowel Sounds, Soft, Non-Tender Skin: Reports: Warm, Dry, Intact Neurological: Reports: No New Focal Deficit *Q Meaningful Use (DIS) - VTE *Q VTE Criteria *Q: No risk for falls or VTE at discharge
== END 2018-06-24 09:15 | disposition home or self-care (01) | DRG 720 ==
LOC: VM.ED 03:55 → VM.MS 06:19 → OBSVTOIN 16:23
PROVIDERS: ADMIT Nurse Practitioner Family; ATTEND Nurse Practitioner Family
DX: A41.50 Gram-negative sepsis, unspecified (principal); E86.0 Dehydration; D69.6 Thrombocytopenia, unspecified; A04.72 Enterocolitis due to Clostridium difficile, not specified as recurrent; N30.01 Acute cystitis with hematuria; I10 Essential (primary) hypertension; E83.42 Hypomagnesemia; Z79.899 Other long term (current) drug therapy; F41.9 Anxiety disorder, unspecified; F32.9 Major depressive disorder, single episode, unspecified; E03.9 Hypothyroidism, unspecified; M10.9 Gout, unspecified
CPT/HCPCS: 36415; 71045; 71046; 80048; 80053; 81001; 83605; 83735; 84100; 84132; 84443; 84484; 85008; 85025; 85045; 85610; 86140; 87040; 87077; 87086; 87088; 87186; 87507; 93005; 96361; 96365; 96375; 99285; A9270-GY; G0328; J0696; J3475; J3480; J3490; J7030; J7120

== ENCOUNTER 2020-08-06 19:55 | Emergency (ER) | payer BC, OTHER ==
[2020-08-06] MEDS ORDERED: Sodium Chloride 0.9% 1,000 ML IV ONE (20:30)
[2020-08-06] MEDS ORDERED: Sodium Chloride 0.9% 10 ML Syringe FLUSH PRN (20:32)
[2020-08-06] MEDS ORDERED: Morphine 4 MG/ML Syringe IVPUSH ONE (20:32)
--- NOTE | 2020-08-06 20:48 | EDM.PDOC ---
ED HPI GENERAL MEDICAL PROBLEM - General Chief Complaint: General Stated Complaint: Fall, Left elbow pain Time Seen by Provider: 08/06/20 20:20 Source of Information: Reports: Patient, EMS History Limitations: Reports: No Limitations - History of Present Illness INITIAL COMMENTS - FREE TEXT/NARRATIVE: Pt. presents to ER with complaints of L elbow pain post fall. Pt. states that she was discharged from [facility] today following treatment for cirrhosis with paracentesis. She was hospitalized from the to the . She states that she has been weak since discharge, and states that she became lightheaded tonight and fell, injuring her L elbow. Denies striking her head. No neck pain. She does complain of some diffuse low back pain. Pt. denies any chest pain, shortness of breath, or palpitations, pre or post fall. Denies any current nausea or vomiting. Onset: Today Location: Reports: Upper Extremity, Left Quality: Reports: Throbbing Severity: Severe - Related Data Allergies Allergy/AdvReac Type Severity Reaction Status Date / Time No Known Allergies Allergy Verified 06/21/18 04:07 Home Meds: Home Meds LORazepam 0.5 mg PO BEDTIME 06/30/15 [History] Levothyroxine Sodium 75 mcg PO DAILY 06/30/15 [History] Meloxicam 15 mg PO DAILY 06/30/15 [History] allopurinoL [Allopurinol] 300 mg PO DAILY 06/30/15 [History] Colchicine 0.6 mg PO Q6H PRN 06/21/18 [History] Enalapril [Vasotec] 10 mg PO DAILY 06/21/18 [History] Ciprofloxacin HCl [Cipro] 500 mg PO BID 9 Days #18 tablet 06/24/18 [Rx] Enalapril [Vasotec] 5 mg PO DAILY tablet 06/24/18 [Rx] metroNIDAZOLE [Flagyl] 500 mg PO Q8H 9 Days #27 tablet 06/24/18 [Rx] Past Medical History Cardiovascular History: Reports: Hypertension Other HOSPICE EDUCATOR History: Tubal ligation Musculoskeletal History: Reports: Gout Other Musculoskeletal History: Finger repair Psychiatric History: Reports: Anxiety, Depression, Other (See Below) Other Psychiatric History: insomnia Endocrine/Metabolic History: Reports: Hypothyroidism, Other (See Below) Other Endocrine/Metabolic History: thyroid disease Social & Family History - Family History Family Medical History: Noncontributory - Caffeine Use Caffeine Use: Reports: Coffee ED ROS GENERAL - Review of Systems Review Of Systems: See Below Constitutional: Reports: No Symptoms HEENT: Reports: No Symptoms Respiratory: Reports: No Symptoms Cardiovascular: Reports: No Symptoms Endocrine: Reports: No Symptoms GI/Abdominal: Reports: Other (Cirrhosis (decompensated, without encephalopathy)) : Reports: No Symptoms Musculoskeletal: Reports: No Symptoms Skin: Reports: No Symptoms Neurological: Reports: No Symptoms Psychiatric: Reports: No Symptoms Hematologic/Lymphatic: Reports: No Symptoms Immunologic: Reports: No Symptoms ED EXAM, GENERAL - Physical Exam Exam: See Below Exam Limited By: No Limitations General Appearance: Alert, Moderate Distress Eye Exam: Bilateral Eye: Other (jaundice) Throat/Mouth: Normal Inspection, Normal Voice, No Airway Compromise Head: Atraumatic, Normocephalic Neck: Normal Inspection, Supple, Non-Tender, Full Range of Motion. No: Tender Lateral, Tender Midline Respiratory/Chest: No Respiratory Distress, Lungs Clear, Normal Breath Sounds, No Accessory Muscle Use, Chest Non-Tender Cardiovascular: Normal Peripheral Pulses, Regular Rate, Rhythm, No Edema, No JVD Peripheral Pulses: 4+: Radial (L) GI/Abdominal: Soft, Non-Tender, Distended (Female) Exam: Deferred Rectal (Female) Exam: Normal Exam, Normal Rectal Tone Back Exam: Normal Inspection, Full Range of Motion Extremities: Other (obvious dislocation of L elbow. CMS intact.) Neurological: Alert, Oriented, CN II-XII Intact, Normal Cognition, Normal Gait, Normal Reflexes, No Motor/Sensory Deficits Psychiatric: Normal Affect, Normal Mood Skin Exam: Warm Course - Orders/Labs/Meds Orders: Active Orders 24 hr Category Date Time Status Elbow 2V Lt [CR] Stat Exams 08/06/20 20:26 Taken Sodium Chloride 0.9% [Saline Flush] Med 08/06/20 20:32 Active 10 ml FLUSH ASDIRECTED PRN Peripheral IV Insertion Adult [OM.PC] Routine Oth 08/06/20 20:32 Ordered Medication Orders Sodium Chloride (Saline Flush) 10 ml FLUSH ASDIRECTED PRN PRN Reason: Keep Vein Open Meds: Medications Generic Name Dose Route Start Last Admin Trade Name Freq PRN Reason Stop Dose Admin Sodium Chloride 10 ml 08/06/20 20:32 Saline Flush FLUSH ASDIRECTED PRN Keep Vein Open Discontinued Medications Generic Name Dose Route Start Last Admin Trade Name Denzel PRN Reason Stop Dose Admin Morphine Sulfate 4 mg 08/06/20 20:32 Morphine IVPUSH 08/06/20 20:33 ONETIME ONE Departure - Departure Time of Disposition: 21:00 Disposition: DC/[facility]fer to Acute Hospital 02 Clinical Impression: Elbow dislocation - Discharge Information Forms: ED Department Discharge - Problem List Review Problem List Initiated/Reviewed/Updated: Yes - My Orders Last 24 Hours: My Active Orders 08/06/20 20:26 Elbow 2V Lt [CR] Stat 08/06/20 20:32 Sodium Chloride 0.9% [Saline Flush] 10 ml FLUSH ASDIRECTED PRN Peripheral IV Insertion Adult [OM.PC] Routine - Assessment/Plan Last 24 Hours: My Active Orders 08/06/20 20:26 Elbow 2V Lt [CR] Stat 08/06/20 20:32 Sodium Chloride 0.9% [Saline Flush] 10 ml FLUSH ASDIRECTED PRN Peripheral IV Insertion Adult [OM.PC] Routine Plan: Pt. was accepted by Dr. Duran at [facility]. Pt. will be transported via [facility] ground ambulance. Family is aware. Pt. was given morphine 4mg IV and started on NS at 125ml/hr.
[2020-08-07 03:19] VITALS: BP 106/58; PULSE 92
--- NOTE | 2020-08-07 07:59 | CR ---
[id number] RAD/RAD Elbow Left 2V EXAM: RAD Elbow Left 2V CLINICAL DATA: TRAUMA COMPARISON: NO PREVIOUS SIMILAR EXAM IS AVAILABLE. FINDINGS: Complete dislocation of the humerus from the ulna is seen A limited study was performed The radius and ulna are displaced proximally and posterior. IMPRESSION: COMPLETE DISLOCATION OF LEFT ELBOW Gavin Sands MD 08/07/20 0758 Thank you for allowing us to participate in the care of your patient.
== END 2020-08-06 21:35 | disposition short-term general hospital (02) ==
LOC: VM.ED 19:55
DX: S53.105A Unspecified dislocation of left ulnohumeral joint, initial encounter (principal); I10 Essential (primary) hypertension; F41.9 Anxiety disorder, unspecified; F32.9 Major depressive disorder, single episode, unspecified; E03.9 Hypothyroidism, unspecified; R17 Unspecified jaundice; Z79.899 Other long term (current) drug therapy; W10.8XXA Fall (on) (from) other stairs and steps, initial encounter; Y92.009 Unspecified place in unspecified non-institutional (private) residence as the place of occurrence of the external cause
CPT/HCPCS: 73070; 96361; 96374; 99284; 99285; J2270; J7030